=== PATIENT | female | born 1980 ===

== ENCOUNTER 2023-02-02 10:09 | Outpatient (RCR) | payer OTHER, SELFPAY | END 2023-02-02 23:59 | disposition home or self-care (01) | LOC: RPT 10:09 | PROVIDERS: ATTENDING PHYSICIAN Physician Assistant; FAMILY PHYSICIAN Physician Assistant Medical | DX: S62.511D Displaced fracture of proximal phalanx of right thumb, subsequent encounter for fracture with routine healing (principal); S50.12XD Contusion of left forearm, subsequent encounter; S52.045D Nondisplaced fracture of coronoid process of left ulna, subsequent encounter for closed fracture with routine healing; Z73.6 Limitation of activities due to disability | CPT/HCPCS: 97022; 97110; 97140 ==